=== PATIENT | female | born 1945 | race Caucasian/White ===

== ENCOUNTER 2020-05-03 07:55 | Outpatient (CLI) | payer OTHER, SELFPAY ==
--- NOTE | 2020-05-03 08:42 | ECG_ITS ---
Measurements Intervals [place] Rate: 50 P: 62 MS: 140 QRS: 28 QRSD: 90 T: 67 QT: 453 QTc: 415 Interpretive Statements SINUS BRADYCARDIA BORDERLINE ST ABNORMALITY- LATERAL LEADS BORDERLINE ECG Electronically Signed On 05-03-2020 8:49:28 CDT by Shaka Lundberg D.O.
[2020-05-03 09:40] LABS: Alanine Aminotransferase 36 U/L (4-35); Albumin Level 4.4 g/dL (3.5-5.1); Alkaline Phosphatase 67 U/L (38-126); Aspartate Amino Transferase 38 U/L (14-36); Bilirubin,Total 1.1 mg/dL (0.2-1.3); Blood Urea Nitrogen 16 mg/dL (7-17); Calcium 9.2 mg/dL (8.4-10.2); Carbon Dioxide 28 mmol/L (22-30); Chloride 100 mmol/L (98-107); Estimated Glomerular Filt Rate 54; Glucose 97 mg/dL (65-105); Potassium 4.5 mmol/L (3.4-5.0); Sodium 133 mmol/L (137-145)
[2020-05-03 10:07] LABS: MALB Creatinine Ratio < 17.6 mg/g (0-30); Microalbumin Urine Random < 6.0 mg/L (0-16.7)
== END 2020-05-03 07:56 | disposition home or self-care (01) ==
PROVIDERS: PCP Internal Medicine; Visit Provider Internal Medicine
DX: R00.1 Bradycardia, unspecified (principal); I10 Essential (primary) hypertension
CPT/HCPCS: 36415; 80053; 82043; 83036; 93005

== ENCOUNTER 2020-08-06 10:07 | Outpatient (CLI) | payer OTHER, SELFPAY ==
[2020-08-06 10:30] LABS: Basophils Percent Auto 0.7 % (0.2-1.2); Eosinophils Absolute Auto 0.1 K/mm3 (0-0.3); Eosinophils Percent Auto 1.6 % (0-4.4); Hematocrit 41.5 % (37.0-47.0); Hemoglobin 13.9 g/dL (12.0-15.0); Immature Granulocyte Absolute 0.01 K/mm3 (0.00-0.031); Immature Granulocyte Percent A 0.2 % (0-0.5); Lymphocytes Absolute Auto 0.97 K/mm3 (0.9-3.2); Lymphocytes Percent Auto 22.6 % (18.3-44.2); Mean Corpuscular HGB Conc 33.5 g/dl (32-36); Mean Corpuscular Hemoglobin 31.9 pg (26-34); Mean Corpuscular Volume 95.2 fl (80-100); Mean Platelet Volume 9.5 fl (7.4-10.4); Monocytes Absolute Auto 0.5 K/mm3 (0.1-0.6); Monocytes Percent Auto 11.2 % (2.6-8.5); Neutrophils Absolute Auto 2.7 K/mm3 (1.3-6.7); Neutrophils Percent Auto 63.7 % (45.5-73.1); Platelet Count Result 195 k/mm3 (150-375); Red Blood Count 4.36 M/mm3 (4.2-5.4); Red Cell Distribution Width 12.7 % (11.5-14.5); White Blood Count 4.3 K/mm3 (4.5-10.0)
[2020-08-06 10:39] LABS: Hemoglobin A1C 5.6 % (<5.7)
[2020-08-06 10:42] LABS: Alanine Aminotransferase 41 U/L (4-35); Albumin Level 4.6 g/dL (3.5-5.1); Alkaline Phosphatase 64 U/L (38-126); Anion Gap 10 mmol/L (8-16); Aspartate Amino Transferase 40 U/L (14-36); Bilirubin,Total 0.8 mg/dL (0.2-1.3); Blood Urea Nitrogen 18 mg/dL (7-17); Calcium 9.4 mg/dL (8.4-10.2); Carbon Dioxide 28 mmol/L (22-30); Chloride 101 mmol/L (98-107); Cholesterol 154 mg/dL (0-200); Estimated Glomerular Filt Rate > 60; Glucose 93 mg/dL (65-105); HDL Direct 59 mg/dL; Potassium 4.5 mmol/L (3.4-5.0); Sodium 139 mmol/L (137-145); Triglycerides 67 mg/dL (<150)
[2020-08-06 10:52] LABS: LDL Cholesterol Direct 70 mg/dL
[2020-08-06 11:10] LABS: Creatinine Urine 12.8 mg/dL
[2020-08-06 11:26] LABS: Vitamin D 25 Hydroxy 40.6 ng/mL
[2020-08-06 11:28] LABS: MALB Creatinine Ratio < 46.9 mg/g (0-30); Microalbumin Urine Random < 6.0 mg/L (0-16.7)
== END 2020-08-06 10:08 | disposition home or self-care (01) ==
LOC: ANHLAB 10:07
PROVIDERS: PCP Internal Medicine; Visit Provider Internal Medicine
DX: E03.9 Hypothyroidism, unspecified (principal); I10 Essential (primary) hypertension; R73.01 Impaired fasting glucose; E78.5 Hyperlipidemia, unspecified; E55.9 Vitamin D deficiency, unspecified
CPT/HCPCS: 36415; 80053; 80061; 82043; 82306; 83036; 84443; 85025

== ENCOUNTER 2020-12-06 09:27 | Outpatient (CLI) | payer OTHER, SELFPAY ==
--- NOTE | ~2020-12-06 | DEXA_ITS ---
Bone Density Report Name: Bree Perez Age: 75 Sex: Female Ethnicity: White Date of : 1945 Indication: osteopenia; monitoring treatment; height loss; Referring Provider: CORINE CHILDRESS Study: Bone densitometry was performed. Exam Date: December 06, 2020 Accession number: [id number] Bone Density: Region BMD T-score Z-score Classification AP Spine (L1-L4) 0.909 -1.3 1.1 Osteopenia Femoral Neck (Left) 0.633 -1.9 0.1 Osteopenia Total Hip (Left) 0.800 -1.2 0.6 Osteopenia Total Hip Bilateral Avg 0.744 -1.6 0.2 Osteopenia Femoral Neck (Right) 0.523 -2.9 -0.9 Osteoporosis Total Hip (Right) 0.686 -2.1 -0.3 Osteopenia World Health Organization criteria for BMD impression classify patients as: Normal (T-score at or above -1.0), Osteopenia (T-score between -1.0 and -2.5), or Osteoporosis (T-score at or below -2.5). 10-year Fracture Risk: FRAX not reported because: Some T-score for Spine Total or Hip Total or Femoral Neck at or below -2.5 Treated for osteoporosis Previous Exams: Region Exam Age BMD T-score BMD Change BMD Change Date g/cm2 vs Baseline vs Previous AP Spine(L1-L4) 12/06/2020 75 0.909 -1.3 0.112(14.1%)# 0.073(8.8%)* 10/17/2018 72 0.836 -1.9 0.039(4.9%)# 0.004(0.5%) 10/13/2016 70 0.831 -2.0 0.035(4.3%)# 0.011(1.3%) 06/27/2014 68 0.821 -2.1 0.024(3.0%)# 0.012(1.5%)# 06/10/2012 66 0.809 -2.2 0.012(1.5%)# -0.039(-4.5%)# 06/05/2010 64 0.847 -1.8 0.050(6.3%)* 0.050(6.3%)* 09/02/2006 60 0.797 -2.3 Total Hip(Left) 12/06/2020 75 0.800 -1.2 -0.004(-0.5%)# -0.026(-3.1%) 10/17/2018 72 0.826 -1.0 0.022(2.7%)# 0.072(9.5%)* 10/13/2016 70 0.754 -1.5 -0.050(-6.2%)# -0.027(-3.4%) 06/27/2014 68 0.781 -1.3 -0.023(-2.9%)# 0.018(2.4%)# 06/10/2012 66 0.763 -1.5 -0.041(-5.1%)# -0.040(-5.0%)# 06/05/2010 64 0.803 -1.1 -0.001(-0.1%) -0.001(-0.1%) 09/02/2006 60 0.804 -1.1 Total Hip(Right) 12/06/2020 75 0.686 -2.1 -0.085(-11.1%) -0.082(-10.6%) 10/17/2018 72 0.768 -1.4 -0.004(-0.5%)# 0.045(6.3%)* 10/13/2016 70 0.723 -1.8 -0.049(-6.4%)# -0.020(-2.7%) 06/27/2014 68 0.742 -1.6 -0.029(-3.8%)# -0.004(-0.5%)# 06/10/2012 66 0.746 -1.6 -0.026(-3.3%)# -0.033(-4.3%)# 06/05/2010 64 0.779 -1.3 0.008(1.0%) 0.008(1.0%) 09/02/2006 60 0.772 -1.4 *Denotes significance at 95% confidence level, LSC for AP Spine = 0.022 g/cm2, LSC for Total Hip = 0.027 g/cm2 Clinical Information Provided by Patient:
--- NOTE | ~2020-12-06 | MM_ITS ---
EXAMINATION: MM screening [facility] BI w nahun HISTORY: Screening TECHNIQUE: Craniocaudal and mediolateral oblique 3-D tomosynthesis images were obtained and synthetic 2-D images were generated. CAD analysis was submitted and interpreted. COMPARISON: Comparison to multiple prior studies sequentially, with oldest reviewed study dated 11/2014. BREAST PARENCHYMAL COMPOSITION: The breasts are heterogeneously dense, which may obscure small masses . FINDINGS: There is no evidence of suspicious mass, calcification, or architectural distortion to sugg est malignancy in either breast. There has been no suspicious interval change. IMPRESSION: 1. No mammographic evidence of malignancy. 2. Recommend routine screening mammography in one year. BI-RADS Category 1: Negative Reviewed, dictated and finalized at location A. CONSERVATION TECHNICIAN
== END 2020-12-06 09:28 | disposition home or self-care (01) ==
LOC: ANHIMG 09:29
PROVIDERS: Family Provider Hospitalist; PCP Internal Medicine; Visit Provider Internal Medicine
DX: Z12.31 Encounter for screening mammogram for malignant neoplasm of breast (principal); Z78.0 Asymptomatic menopausal state; M85.89 Other specified disorders of bone density and structure, multiple sites; M81.0 Age-related osteoporosis without current pathological fracture
CPT/HCPCS: 77063; 77067; 77080

== ENCOUNTER 2021-02-04 09:37 | Outpatient (CLI) | payer OTHER, SELFPAY ==
[2021-02-04 10:25] LABS: Alanine Aminotransferase 32 U/L (4-35); Albumin Level 4.7 g/dL (3.5-5.1); Alkaline Phosphatase 65 U/L (38-126); Anion Gap 8 mmol/L (8-16); Aspartate Amino Transferase 38 U/L (14-36); Bilirubin,Total 0.8 mg/dL (0.2-1.3); Blood Urea Nitrogen 25 mg/dL (7-17); Calcium 9.6 mg/dL (8.4-10.2); Carbon Dioxide 28 mmol/L (22-30); Chloride 102 mmol/L (98-107); Estimated Glomerular Filt Rate 54; Glucose 96 mg/dL (65-105); Potassium 4.1 mmol/L (3.4-5.0); Sodium 138 mmol/L (137-145)
[2021-02-04 11:15] LABS: Vitamin D 25 Hydroxy 48.1 ng/mL
== END 2021-02-04 09:38 | disposition home or self-care (01) ==
LOC: ANHLAB 09:38
PROVIDERS: PCP Internal Medicine; Visit Provider Internal Medicine
DX: I10 Essential (primary) hypertension (principal); E55.9 Vitamin D deficiency, unspecified
CPT/HCPCS: 36415; 80053; 82306

== ENCOUNTER 2021-10-08 08:19 | Outpatient (CLI) | payer OTHER, SELFPAY ==
[2021-10-08 09:02] LABS: Alanine Aminotransferase 26 U/L (4-35); Albumin Level 4.5 g/dL (3.5-5.1); Alkaline Phosphatase 69 U/L (38-126); Anion Gap 8 mmol/L (8-16); Aspartate Amino Transferase 34 U/L (14-36); Bilirubin,Total 0.8 mg/dL (0.2-1.3); Blood Urea Nitrogen 21 mg/dL (7-17); Calcium 9.2 mg/dL (8.4-10.2); Carbon Dioxide 26 mmol/L (22-30); Chloride 101 mmol/L (98-107); Estimated Glomerular Filt Rate > 60; Glucose 100 mg/dL (65-110); Potassium 3.8 mmol/L (3.4-5.0); Sodium 135 mmol/L (137-145)
[2021-10-08 09:27] LABS: Vitamin D 25 Hydroxy 47.6 ng/mL
== END 2021-10-08 08:20 | disposition home or self-care (01) ==
LOC: ANHLAB 08:23
PROVIDERS: PCP Internal Medicine; Visit Provider Internal Medicine
DX: M81.0 Age-related osteoporosis without current pathological fracture (principal); E55.9 Vitamin D deficiency, unspecified
CPT/HCPCS: 36415; 80053; 82306

== ENCOUNTER 2021-12-04 10:26 | Outpatient (CLI) | payer OTHER, SELFPAY ==
--- NOTE | ~2021-12-04 | MM_ITS ---
EXAMINATION: MM screening [facility] BI w nahun HISTORY: Screening mammogram TECHNIQUE: Craniocaudal and mediolateral oblique 3-D tomosynthesis images were obtained and synthetic 2-D images were generated. CAD analysis was submitted and interpreted. COMPARISON: 12/06/2020, 11/17/2019, 10/17/2018 BREAST PARENCHYMAL COMPOSITION: The breasts are heterogeneously dense, which may obscure small masses . FINDINGS: There is no evidence of suspicious mass, calcification, or architectural distortion to sugg est malignancy in either breast. There has been no suspicious interval change. IMPRESSION: 1. No mammographic evidence of malignancy. 2. Recommend routine screening mammography in one year. BI-RADS Category 1: Negative Reviewed, dictated and finalized at location A. OMIC PATHOLOGY MANAGER
== END 2021-12-04 10:27 | disposition home or self-care (01) ==
LOC: ANHIMG 10:28
PROVIDERS: PCP Internal Medicine; Visit Provider Internal Medicine
DX: Z12.31 Encounter for screening mammogram for malignant neoplasm of breast (principal)
CPT/HCPCS: 77063; 77067

== ENCOUNTER 2022-02-19 10:58 | Outpatient (CLI) | payer OTHER, SELFPAY ==
[2022-02-19 11:26] LABS: Basophils Percent Auto 0.6 % (0.2-1.2); Eosinophils Absolute Auto 0.1 K/mm3 (0-0.3); Eosinophils Percent Auto 1.4 % (0-4.4); Hematocrit 42.9 % (37.0-47.0); Hemoglobin 13.9 g/dL (12.0-15.0); Immature Granulocyte Absolute 0.02 K/mm3 (0.00-0.031); Immature Granulocyte Percent A 0.4 % (0-0.5); Lymphocytes Absolute Auto 0.82 K/mm3 (0.9-3.2); Lymphocytes Percent Auto 16.9 % (18.3-44.2); Mean Corpuscular HGB Conc 32.4 g/dl (32-36); Mean Corpuscular Hemoglobin 31.4 pg (26-34); Mean Corpuscular Volume 97.1 fl (80-100); Mean Platelet Volume 9.4 fl (7.4-10.4); Monocytes Absolute Auto 0.5 K/mm3 (0.1-0.6); Monocytes Percent Auto 10.3 % (2.6-8.5); Neutrophils Absolute Auto 3.4 K/mm3 (1.3-6.7); Neutrophils Percent Auto 70.4 % (45.5-73.1); Platelet Count Result 183 k/mm3 (150-375); Red Blood Count 4.42 M/mm3 (4.2-5.4); Red Cell Distribution Width 12.2 % (11.5-14.5); White Blood Count 4.9 K/mm3 (4.5-10.0)
[2022-02-19 11:35] LABS: Alanine Aminotransferase 27 U/L (4-35); Albumin Level 4.4 g/dL (3.5-5.1); Alkaline Phosphatase 62 U/L (38-126); Anion Gap 9 mmol/L (8-16); Aspartate Amino Transferase 33 U/L (14-36); Bilirubin,Total 0.9 mg/dL (0.2-1.3); Blood Urea Nitrogen 24 mg/dL (7-17); Carbon Dioxide 26 mmol/L (22-30); Chloride 102 mmol/L (98-107); Cholesterol 188 mg/dL (0-200); Estimated Glomerular Filt Rate 54; Glucose 92 mg/dL (65-110); HDL Direct 59 mg/dL; Potassium 4.3 mmol/L (3.4-5.0); Sodium 137 mmol/L (137-145); Triglycerides 67 mg/dL (<150)
[2022-02-19 11:38] LABS: Hemoglobin A1C 5.5 % (<5.7)
[2022-02-19 11:46] LABS: LDL Cholesterol Direct 80 mg/dL
[2022-02-19 11:48] LABS: Creatinine Urine 20.7 mg/dL
[2022-02-19 11:56] LABS: MALB Creatinine Ratio < 29.0 mg/g (0-30); Microalbumin Urine Random < 6.0 mg/L (0-16.7)
== END 2022-02-19 10:59 | disposition home or self-care (01) ==
LOC: ANHLAB 11:01
PROVIDERS: PCP Internal Medicine; Visit Provider Internal Medicine
DX: M81.0 Age-related osteoporosis without current pathological fracture (principal); E03.9 Hypothyroidism, unspecified; R73.01 Impaired fasting glucose; E78.00 Pure hypercholesterolemia, unspecified; E78.2 Mixed hyperlipidemia
CPT/HCPCS: 36415; 80053; 80061; 82043; 83036; 84443; 85025

== ENCOUNTER 2022-07-31 07:40 | Outpatient (CLI) | payer OTHER, SELFPAY ==
--- NOTE | ~2022-07-31 | DEXA_ITS ---
Bone Density Report Name: HARRIETT GREENE Age: 76 Sex: Female Ethnicity: White Date of : 1945 Indication: osteopenia; monitoring treatment; height loss; postmenopausal Referring Provider: MONROE, CORINE Study: Bone densitometry was performed. Exam Date: July 31, 2022 Accession number: [id number] Bone Density: Region BMD T-score Z-score Classification AP Spine(L1-L4) 0.926 -1.1 1.4 Osteopenia Femoral Neck (Left) 0.623 -2.0 0.1 Osteopenia Total Hip (Left) 0.813 -1.1 0.8 Osteopenia Femoral Neck (Right) 0.549 -2.7 -0.5 Osteoporosis Total Hip (Right) 0.731 -1.7 0.2 Osteopenia Total Hip Mean 0.772 -1.4 0.5 Osteopenia World Health Organization criteria for BMD impression classify patients as: Normal (T-score at or above -1.0), Osteopenia (T-score between -1.0 and -2.5), or Osteoporosis (T-score at or below -2.5). 10-year Fracture Risk: FRAX not reported because: Some T-score for Spine Total or Hip Total or Femoral Neck at or below -2.5 Treated for osteoporosis Previous Exams: Region Exam Age BMD T-score BMD Change BMD Change Date g/cm2 vs Baseline vs Previous AP Spine (L1-L4) 07/31/2022 76 0.926 -1.1 0.105 (12.8%)* 0.017 (1.9%) 12/06/2020 75 0.909 -1.3 0.088 (10.7%)* 0.073 (8.8%)* 10/17/2018 72 0.836 -1.9 0.015 (1.8%) 0.004 (0.5%) 10/13/2016 70 0.831 -2.0 0.011 (1.3%) 0.011 (1.3%) 06/27/2014 68 0.821 -2.1 Total Hip(Left) 07/31/2022 76 0.813 -1.1 0.033 (4.2%)* 0.013 (1.7%) 12/06/2020 75 0.800 -1.2 0.019 (2.5%) -0.026 (-3.1%) 10/17/2018 72 0.826 -1.0 0.045 (5.8%)* 0.072 (9.5%)* 10/13/2016 70 0.754 -1.5 -0.027 (-3.4%) -0.027 (-3.4%) 06/27/2014 68 0.781 -1.3 Total Hip(Right) 07/31/2022 76 0.731 -1.7 -0.011 (-1.5%) 0.045 (6.5%)* 12/06/2020 75 0.686 -2.1 -0.056 (-7.5%) -0.082 (-10.6% 10/17/2018 72 0.768 -1.4 0.026 (3.4%) 0.045 (6.3%)* 10/13/2016 70 0.723 -1.8 -0.020 (-2.7%) -0.020 (-2.7%) 06/27/2014 68 0.742 -1.6 *Denotes significance at 95% confidence level, LSC for AP Spine = 0.022 g/cm2, LSC for Total Hip = 0.027 g/cm2 Clinical Information Provided by Patient: Is being treated for osteoporosis Has used the following medications: Prolia (i.e. denosumab), Vitamin D, Calcium Patient maximum height was 65 Menopause Age: 50 Onset of menses at age 12 Number of children 4 Impression: The patient has osteopor
== END 2022-07-31 07:41 | disposition home or self-care (01) ==
LOC: ANHIMG 07:43
PROVIDERS: PCP Internal Medicine; Visit Provider Internal Medicine
DX: M81.0 Age-related osteoporosis without current pathological fracture (principal); M85.89 Other specified disorders of bone density and structure, multiple sites
CPT/HCPCS: 77080

== ENCOUNTER 2022-09-15 09:30 | Outpatient (CLI) | payer OTHER, SELFPAY ==
[2022-09-15 10:07] LABS: Alanine Aminotransferase 27 U/L (6-35); Albumin Level 4.7 g/dL (3.5-5.1); Alkaline Phosphatase 66 U/L (38-126); Anion Gap 10 mmol/L (8-16); Aspartate Amino Transferase 32 U/L (14-36); Blood Urea Nitrogen 23 mg/dL (7-17); Calcium 9.3 mg/dL (8.4-10.2); Carbon Dioxide 24 mmol/L (22-30); Chloride 102 mmol/L (98-107); Cholesterol 186 mg/dL (0-200); Estimated Glomerular Filt Rate 54; Glucose 92 mg/dL (65-110); HDL Direct 70 mg/dL; Potassium 4.1 mmol/L (3.4-5.0); Sodium 136 mmol/L (137-145); Triglycerides 80 mg/dL (<150)
[2022-09-15 10:18] LABS: LDL Cholesterol Direct 80 mg/dL
[2022-09-15 11:07] LABS: Vitamin D 25 Hydroxy 38.7 ng/mL
== END 2022-09-15 09:31 | disposition home or self-care (01) ==
LOC: ANHLAB 09:31
PROVIDERS: PCP Internal Medicine; Visit Provider Internal Medicine
DX: R73.01 Impaired fasting glucose (principal); I10 Essential (primary) hypertension; E03.9 Hypothyroidism, unspecified; E78.5 Hyperlipidemia, unspecified; E55.9 Vitamin D deficiency, unspecified
CPT/HCPCS: 36415; 80053; 80061; 82306; 83036; 84443

== ENCOUNTER 2022-11-24 10:15 | Outpatient (CLI) | payer OTHER, SELFPAY ==
--- NOTE | ~2022-11-24 | US_ITS ---
Thyroid ultrasound. Clinical History: Nontoxic thyroid nodule Findings: Real-time sonography of the thyroid gland was performed. The right lobe measures 2.9 x 1.2 x 1.0 cm. The left lobe measures 3.0 x 1.0 x 0.7 cm. The isthmus is 2 mm in AP diameter. Parenchyma is somewhat heterogeneous without discrete nodule. Impression: Small/atrophic thyroid gland. Heterogeneous parenchyma without discrete nodule. Reviewed, dictated and finalized at [facility]. PROGRAMMER ANALYST Impression: Small/atrophic thyroid gland. Heterogeneous parenchyma without discrete nodule.
== END 2022-11-24 10:16 | disposition home or self-care (01) ==
PROVIDERS: PCP Family Medicine; Visit Provider Physician Assistant Medical
DX: E04.1 Nontoxic single thyroid nodule (principal); E03.4 Atrophy of thyroid (acquired)
CPT/HCPCS: 76536

== ENCOUNTER 2023-02-17 07:56 | Outpatient (CLI) | payer OTHER, SELFPAY ==
--- NOTE | ~2023-02-17 | MM_ITS ---
EXAMINATION: MM screening dane BI w nahun HISTORY: Screening mammogram TECHNIQUE: Craniocaudal and mediolateral oblique 3-D tomosynthesis images were obtained and synthetic 2-D images were generated. CAD analysis was submitted and interpreted. COMPARISON: 12/04/2021, 12/06/2020, 11/17/2019 bilateral screening mammogram examinations BREAST PARENCHYMAL COMPOSITION: The breasts are heterogeneously dense, which may obscure small masses . FINDINGS: Scattered bilateral benign calcifications. There is no evidence of suspicious mass, calcifi cation, or architectural distortion to suggest malignancy in either breast. There has been no suspici ous interval change. IMPRESSION: 1. No mammographic evidence of malignancy. 2. Recommend routine screening mammography in one year. BI-RADS Category 2: Benign finding(s).............. Reviewed, dictated and finalized at location A.
== END 2023-02-17 07:57 | disposition home or self-care (01) ==
LOC: ANHIMG 07:58
PROVIDERS: PCP Family Medicine; Visit Provider Physician Assistant Medical
DX: Z12.31 Encounter for screening mammogram for malignant neoplasm of breast (principal)
CPT/HCPCS: 77063; 77067

== ENCOUNTER 2023-03-11 08:03 | Outpatient (CLI) | payer OTHER, SELFPAY ==
[2023-03-11 08:47] LABS: Alanine Aminotransferase 31 U/L (6-35); Albumin Level 4.5 g/dL (3.5-5.1); Alkaline Phosphatase 65 U/L (38-126); Anion Gap 7 mmol/L (8-16); Aspartate Amino Transferase 34 U/L (14-36); Blood Urea Nitrogen 23 mg/dL (7-17); Calcium 9.2 mg/dL (8.4-10.2); Carbon Dioxide 28 mmol/L (22-30); Chloride 100 mmol/L (98-107); Cholesterol 159 mg/dL (0-200); Estimated Glomerular Filt Rate > 60; Glucose 91 mg/dL (65-110); HDL Direct 55 mg/dL; Potassium 4.2 mmol/L (3.4-5.0); Sodium 135 mmol/L (137-145); Triglycerides 66 mg/dL (<150)
[2023-03-11 08:58] LABS: LDL Cholesterol Direct 82 mg/dL
[2023-03-11 09:11] LABS: Hemoglobin A1C 5.8 % (<5.7)
== END 2023-03-11 08:04 | disposition home or self-care (01) ==
PROVIDERS: PCP Family Medicine; Visit Provider Physician Assistant Medical
DX: Z00.00 Encounter for general adult medical examination without abnormal findings (principal); R73.01 Impaired fasting glucose; I10 Essential (primary) hypertension; E03.9 Hypothyroidism, unspecified
CPT/HCPCS: 36415; 80053; 80061; 83036; 84443

== ENCOUNTER 2023-08-28 22:08 | Emergency (ER) | payer OTHER, SELFPAY ==
--- NOTE | ~2023-08-28 | XR_ITS ---
XR hand LT min 3V 08/28/2023 22:46 INDICATION: Hand pain PROCEDURE: 4 views left hand COMPARISON: No prior studies for comparison. FINDINGS: Fracture, dislocation or subluxation is not identified. The soft tissues appear within norm al limits. No foreign bodies are identified. IMPRESSION: 1: NO ACUTE BONE OR JOINT ABNORMALITY IDENTIFIED. Reviewed, dictated and finalized at location A.
[2023-08-28 22:10] VITALS: BP 180/92; PULSE 78; RESP 18; TEMP 36.5; O2SAT 100
--- NOTE | 2023-08-28 23:40 | ED.EXTPRO ---
HPI - Extremity Problem General Chief complaint: Extremity Problem,Nontraumatic Stated complaint: Pain to left hand Time Seen by Provider: 08/28/23 22:37 Source: patient Mode of arrival: ambulatory Limitations: no limitations History of Present Illness HPI Narrative: Patient is a 77 y/o female who presents to the ED with c/o left hand/wrist pain. Patient reports last she woke up with pain in her right shoulder. She states she was not able to use her right upper extremity for a couple of days and was compensating with her left hand/arm. She complains of pain today to her left arm/wrist. Mild swelling noted to the left volar wrist. She denies any direct injury. Reports intermittent paresthesias in second and third digits. Denies numbness. Patient took Tylenol today without relief. Related Data Home Medications Medication Instructions Recorded Confirmed ascorbic acid (vitamin C) 500 mg 250 mg PO DAILY 11/17/22 06/01/23 tablet calcium carbonate 600 mg-vitamin cap PO 11/17/22 06/01/23 D3 12.5 mcg (500 unit) capsule (Calcium 600 with Vitamin D3) Allergies Allergy/AdvReac Type Severity Reaction Status Date / Time No Known Allergies Allergy Unknown Unknown Verified 08/28/23 22:14 Review of Systems Review of Systems: CONSTITUTIONAL: Denies fever, chills, or sweats. MUSCULOSKELETAL: See HPI. NEUROLOGIC: See HPI. All systems reviewed & are unremarkable except as noted in HPI and below PMFSH Past Medical History Medical History COVID-19 vaccine series completed Leukocytopenia, unspecified Microscopic hematuria Family History Family History Sibling Hypertension Family history of arthritis Father Patient's father is , Onset Age: 37 Mother Family history of cardiovascular disease, Onset Age: 92 Cerebrovascular accident Family history of heart disease in male family member before age 55 Social History Social History Smoking status: Never smoker Second hand tobacco smoke exposure: No Alcohol intake: never Substance use: never Substance use type: does not use Lack of Transportation: No Lack of Food: Never True Current Housing: I Have Housing Concerned About Future Housing: No Difficulty Paying Gas/Electric Bills: No Difficulty Paying for Meds: No Currently Unemployed: No Education: High School Diploma/GED Difficulty w/ Childcare or Family Care: No Living arrangements: with family Occupation/Education: retired Gender identity (if verbalized by the patient): Female Exam Narrative: GENERAL: Well appearing, thin, non-toxic, in no acute distress. HEAD: Normocephalic, atraumatic. NECK: Supple. No adenopathy, no masses. RESPIRATORY: Airway patent, respirations nonlabored. CARDIOVASCULAR: Regular rate and rhythm without murmurs, rubs, or gallops. Radial pulses 2+ and equal bilaterally. MUSCULOSKELETAL: Moves all extremities. Strength/ROM intact without gross deformities. + carpal compression testing on left wrist reproducing pain. Positive Tinel sign. Area of swelling and focal tenderness over L volar wrist. Sensation intact to all fingers. Equal mineralogy professor strength bilaterally. Good capillary refill. SKIN: Warm, dry, normal color. No rashes. NEURO: A&O X3. Speech clear. Cranial nerves II-XII grossly intact. Steady gait. No ataxic movements. PSYCHIATRIC: Appropriate mood and affect. Normal interaction. Course Vital Signs Vital signs: Vital Signs Temperature 97.7 F 08/28/23 22:10 Pulse Rate 78 08/28/23 22:10 Respiratory Rate 18 08/28/23 22:10 Blood Pressure 180/92 H 08/28/23 22:10 Pulse Oximetry 100 08/28/23 22:10 Oxygen Delivery Room Air 08/28/23 22:10 Temperature 97.7 F 08/28/23 22:10 Pulse Rate 78 08/28/23 22:10 R
[2023-08-29] MEDS: traMADol HCL (*CRX) 25 MG TABLET PO (00:05)
[2023-08-29] MEDS: NAPROXEN 250 MG TABLET PO (00:05)
== END 2023-08-29 00:16 | disposition home or self-care (01) ==
PROVIDERS: Emergency Provider Physician Assistant; PCP Family Medicine
DX: G56.02 Carpal tunnel syndrome, left upper limb (principal)
CPT/HCPCS: 73130; 99283; A9270

== ENCOUNTER 2023-10-07 09:47 | Outpatient (CLI) | payer OTHER, SELFPAY ==
[2023-10-07 10:19] LABS: Alanine Aminotransferase 25 U/L (6-35); Albumin Level 4.4 g/dL (3.5-5.1); Alkaline Phosphatase 76 U/L (38-126); Anion Gap 10 mmol/L (8-16); Aspartate Amino Transferase 32 U/L (14-36); Bilirubin,Total 0.8 mg/dL (0.2-1.3); Blood Urea Nitrogen 19 mg/dL (7-17); Calcium 9.5 mg/dL (8.4-10.2); Carbon Dioxide 26 mmol/L (22-30); Chloride 103 mmol/L (98-107); Cholesterol 180 mg/dL (0-200); Estimated Glomerular Filt Rate > 60; Glucose 92 mg/dL (65-110); HDL Direct 72 mg/dL; Potassium 4.2 mmol/L (3.4-5.0); Sodium 139 mmol/L (137-145); Triglycerides 61 mg/dL (<150)
[2023-10-07 10:23] LABS: Hemoglobin A1C 5.6 % (<5.7)
[2023-10-07 10:30] LABS: LDL Cholesterol Direct 81 mg/dL
== END 2023-10-07 09:48 | disposition home or self-care (01) ==
PROVIDERS: PCP Family Medicine; Visit Provider Physician Assistant Medical
DX: E78.2 Mixed hyperlipidemia (principal); R73.03 Prediabetes
CPT/HCPCS: 36415; 80053; 80061; 83036

== ENCOUNTER 2024-02-12 07:29 | Outpatient (CLI) | payer OTHER, SELFPAY ==
--- NOTE | ~2024-02-12 | MM_ITS ---
EXAMINATION: MM screening dane BI w nahun HISTORY: Screening mammogram TECHNIQUE: Craniocaudal and mediolateral oblique 3-D tomosynthesis images were obtained and synthetic 2-D images were generated. CAD analysis was submitted and interpreted. COMPARISON: February 17, 2023, December 04, 2021 bilateral screening mammogram examinations BREAST PARENCHYMAL COMPOSITION: The breasts are heterogeneously dense, which may obscure small masses . FINDINGS: There is no evidence of suspicious mass, calcification, or architectural distortion to sugg est malignancy in either breast. There has been no suspicious interval change. IMPRESSION: 1. No mammographic evidence of malignancy. 2. Recommend routine screening mammography in one year. BI-RADS Category 1: Negative Reviewed, dictated and finalized at location B.
== END 2024-02-12 07:30 | disposition home or self-care (01) ==
PROVIDERS: PCP Family Medicine; Visit Provider Family Medicine
DX: Z12.31 Encounter for screening mammogram for malignant neoplasm of breast (principal)
CPT/HCPCS: 77063; 77067

== ENCOUNTER 2024-04-05 09:47 | Outpatient (CLI) | payer OTHER, SELFPAY ==
[2024-04-05 10:49] LABS: Alanine Aminotransferase 22 U/L (6-35); Albumin Level 4.6 g/dL (3.5-5.1); Alkaline Phosphatase 67 U/L (38-126); Anion Gap 9 mmol/L (4-12); Aspartate Amino Transferase 29 U/L (14-36); Blood Urea Nitrogen 23 mg/dL (7-17); Calcium 9.3 mg/dL (8.4-10.2); Carbon Dioxide 26 mmol/L (22-30); Chloride 103 mmol/L (98-107); Cholesterol 165 mg/dL (0-200); Estimated Glomerular Filt Rate 48; Glucose 92 mg/dL (65-110); HDL Direct 62 mg/dL; Sodium 138 mmol/L (137-145); Triglycerides 76 mg/dL (<150)
[2024-04-05 11:01] LABS: LDL Cholesterol Direct 79 mg/dL
== END 2024-04-05 09:48 | disposition home or self-care (01) ==
LOC: ANHLAB 09:50
PROVIDERS: PCP Family Medicine; Visit Provider Physician Assistant Medical
DX: E03.9 Hypothyroidism, unspecified (principal); E78.2 Mixed hyperlipidemia
CPT/HCPCS: 36415; 80053; 80061; 84439; 84443

== ENCOUNTER 2024-04-07 08:48 | Outpatient (CLI) | payer OTHER, SELFPAY ==
[2024-04-07 09:44] LABS: Appearance Urine Clear (Clear); Bacteria Urine None Seen /hpf; Bilirubin Urine Negative (Negative); Blood Urine Trace (Negative); Color Urine Yellow (Yellow); Glucose Urine UA Negative (Negative); Ketones Urine Negative (Negative); Leukocyte Esterase Ur Negative LEU/UL (Negative); Need Manual Microscopic Reviewed; Nitrate Urine Negative (Negative); Non Pathogenic Casts 0-2; Protein Urine Negative (Negative); RBC Urine 0-2 /hpf (0-2); Squamous Epithelial Cell Urine None Seen /hpf (Few); Urobilinogen Urine 0.2 mg/dL (<2.0); WBC Urine 0-5 /hpf (0-3)
[2024-04-07 09:51] LABS: Specific Grav Ur 1.004 (1.001-1.035)
[2024-04-07 09:52] LABS: Add Urine Microscopic? YES
== END 2024-04-07 08:49 | disposition home or self-care (01) ==
LOC: ANHLAB 08:50
PROVIDERS: PCP Family Medicine; Visit Provider Physician Assistant Medical
DX: R30.0 Dysuria (principal)
CPT/HCPCS: 81001; 81003

== ENCOUNTER 2024-04-28 19:55 | Emergency (ER) | payer OTHER, SELFPAY ==
[2024-04-28] VITALS (10 sets, daily range): BP systolic 139–195; BP diastolic 67–100; PULSE 73–80; RESP 13–20; TEMP 36.7; O2SAT 97–100
--- NOTE | ~2024-04-28 | CT_ITS ---
CT cervical spine wo con Ordering provider: Keshia Stewart PA-C History: . pain . Radiation reduction technique utilized. DLP is 128. 08 mGy. Comparison: None. Technique: CT of the cervical spine was performed without contrast. Sagittal and coronal reformatted images were also obtained and reviewed. Radiation reduction technique utilized. DLP is 128. 08 mGy. FINDINGS: VERTEBRAE: No subluxation or acute fracture. The occipital condyles are intact. DISC SPACES: Multilevel degenerative disc disease seen with narrowing of the disc C3-C4, C4-C5, C5-C6 and C6-C7. Multilevel uncovertebral joint osteoarthritic changes. Right foraminal narrowing at the l evel of C3-C4. PARASPINOUS SOFT TISSUES: Bilateral carotid calcifications.. IMPRESSION: No acute osseous abnormality cervical spine. Reviewed, dictated and finalized at location A.
--- NOTE | ~2024-04-28 | XR_ITS ---
XR chest 2V Ordering provider: Keshia Stewart PA-C History: 78 years Female with . L shoulder pain, no trauma . Comparison: April 21, 2019 FINDINGS: MEDIASTINUM: The cardiac silhouette is not enlarged. Prominent both ernesto. LUNGS: No infiltrates, effusions or pneumothorax. OTHER: No free air under the diaphragm. Degenerative changes of the spine. IMPRESSION: No acute cardiopulmonary pathology. Reviewed, dictated and finalized at location A.
--- NOTE | ~2024-04-28 | XR_ITS ---
XR shoulder LT min 2V Ordering provider: Keshia Stewart PA-C History: . pain . Comparison: None. FINDINGS: BONES: No acute fracture or dislocation. JOINT SPACES: The acromioclavicular joint is normal. The glenohumeral joint is normal. SOFT TISSUES: Normal. IMPRESSION: No acute osseous abnormality left shoulder. Reviewed, dictated and finalized at location A.
--- NOTE | 2024-04-28 19:59 | ECG_ITS ---
Test Date: 2024-04-28 20:07:08 Measurements Intervals [place] Rate: 83 P: 56 NE: 148 QRS: 5 QRSD: 89 T: 49 QT: 358 QTc: 421 Interpretive Statements SINUS RHYTHM WITH FREQUENT SUPRAVENTRICULAR PREMATURE COMPLEXES POSSIBLE LEFT ATRIAL ENLARGEMENT [-0.1mV P-WAVE IN V1/V2] NONSPECIFIC ST & T-WAVE ABNORMALITY ABNORMAL RHYTHM ECG No previous ECG available for comparison Electronically Signed On 04-29-2024 08:00:14 CDT by Steve Starr M.D.
--- NOTE | 2024-04-28 20:45 | ED.EXTPRO ---
HPI - Extremity Problem General Chief complaint: Extremity Problem,Nontraumatic Stated complaint: LEFT shoulder pain Time Seen by Provider: 04/28/24 20:32 History of Present Illness HPI Narrative: 78-year-old female with a history of hypertension and hyperlipidemia presents to the emergency department for left shoulder pain since 1:00 p.m.. Patient states she worked out this morning at the gym and did a lap pull-down machine. States she had no pain during exercise, however around 1:00 p.m. while she was resting she began developing sharp pain in her left shoulder. She states she took her blood pressure and found to be 190/1 20s which concerned her. She took a shower and states her blood pressure came down to 150, however so his climb back up which prompted her to come to the ED. States she has concern for her heart was make sure she is not having a heart attack. She denies any chest pain or shortness of breath, associated nausea or emesis, associated diaphoresis. She denies exertional chest pain or shortness of breath. She states the pain is in her left shoulder and radiates into her left neck and into the upper part of her arm. She describes it as an electric shock-like pain is concerned it may be a pinched nerve. She denies radiating numbness or tingling. She states the pain is worse when she abducts her arm. She denies history of CAD. Reports family medical history of CVA/TIA. Related Data Home Medications Medication Instructions Recorded Confirmed ascorbic acid (vitamin C) 500 mg 250 mg PO DAILY 11/17/22 04/05/24 tablet calcium carbonate 600 mg-vitamin cap PO 11/17/22 04/05/24 D3 12.5 mcg (500 unit) capsule (Calcium 600 with Vitamin D3) Allergies Allergy/AdvReac Type Severity Reaction Status Date / Time No Known Allergies Allergy Unknown Unknown Verified 04/28/24 20:07 Review of Systems Review of Systems: CONSTITUTIONAL: Denies fever, chills, or sweats. EYES: Denies visual changes, redness, or discharge. ENT: Denies rhinorrhea, congestion, sore throat, or otalgia. CARDIOVASCULAR: Denies chest pain, palpitations, or edema. RESPIRATORY: Denies cough or dyspnea. GASTROINTESTINAL: Denies abdominal pain, nausea, vomiting, or diarrhea. GENITOURINARY: Denies dysuria or hematuria. SKIN: Denies rash or itching. MUSCULOSKELETAL: See HPI NEUROLOGIC: Denies headache, numbness, or weakness. PSYCHIATRIC: Denies anxiety or depression. [facility] Past Medical History Medical History COVID-19 vaccine series completed Leukocytopenia, unspecified Microscopic hematuria Family History Family History Sibling Hypertension Family history of arthritis Father Patient's father is , Onset Age: 37 Mother Family history of cardiovascular disease, Onset Age: 92 Cerebrovascular accident Family history of heart disease in male family member before age 55 Social History Social History Smoking status: Never smoker Second hand tobacco smoke exposure: No Alcohol intake: never Substance use: never Substance use type: does not use Lack of Transportation: No Lack of Food: Never True Current Housing: I Have Housing Concerned About Future Housing: No Difficulty Paying Gas/Electric Bills: No Difficulty Paying for Meds: No Currently Unemployed: No Education: High School Diploma/GED Difficulty w/ Childcare or Family Care: No Living arrangements: with family Occupation/Education: retired Gender identity (if verbalized by the patient): Female Exam Narrative: GENERAL: Well-appearing, well-nourished, and in no acute distress. HEAD: Normocephalic, atraumatic. EYES: PERRLA and EOMI. ENT: Nares clear, no rhinorrhea or epistaxis. Mucous membranes moist. NECK: no midline cervical spinous tenderness
[2024-04-28] MEDS: ACETAMINOPHEN 500 MG TABLET 1000 MG PO (20:52)
[2024-04-28] MEDS: LIDOCAINE 5% PATCH 1 PATCH TRANSDERM (20:53)
[2024-04-28] MEDS: CYCLOBENZAPRINE HCL 10 MG TABLET 5 MG PO (20:53)
[2024-04-28 21:41] LABS: Basophils Percent Auto 0.4 % (0.2-1.2); Eosinophils Percent Auto 0.3 % (0-4.4); Hemoglobin 13.3 g/dL (12.0-15.0); Immature Granulocyte Absolute 0.03 K/mm3 (0.00-0.031); Immature Granulocyte Percent A 0.3 % (0-0.5); Lymphocytes Absolute Auto 0.68 K/mm3 (0.9-3.2); Lymphocytes Percent Auto 7.3 % (18.3-44.2); Mean Corpuscular HGB Conc 32.4 g/dl (32-36); Mean Corpuscular Hemoglobin 30.8 pg (26-34); Mean Corpuscular Volume 94.9 fl (80-100); Mean Platelet Volume 9.3 fl (7.4-10.4); Monocytes Absolute Auto 0.7 K/mm3 (0.1-0.6); Monocytes Percent Auto 7.8 % (2.6-8.5); Neutrophils Absolute Auto 7.8 K/mm3 (1.3-6.7); Neutrophils Percent Auto 83.9 % (45.5-73.1); Platelet Count Result 190 k/mm3 (150-375); Red Blood Count 4.32 M/mm3 (4.2-5.4); Red Cell Distribution Width 12.4 % (11.5-14.5); White Blood Count 9.3 K/mm3 (4.5-10.0)
[2024-04-28 21:51] LABS: Alanine Aminotransferase 21 U/L (6-35); Albumin Level 4.6 g/dL (3.5-5.1); Alkaline Phosphatase 82 U/L (38-126); Anion Gap 10 mmol/L (4-12); Aspartate Amino Transferase 29 U/L (14-36); Blood Urea Nitrogen 13 mg/dL (7-17); Calcium 9.2 mg/dL (8.4-10.2); Carbon Dioxide 24 mmol/L (22-30); Chloride 102 mmol/L (98-107); Estimated CRCL calculation 39 ml/min; Estimated Glomerular Filt Rate > 60; Glucose 129 mg/dL (65-110); Lipase 70 U/L (23-300); Potassium 3.8 mmol/L (3.4-5.0); Prothrombin Time 13.4 Seconds (11.1-14.7); Sodium 136 mmol/L (137-145)
[2024-04-28 21:52] LABS: Partial Thromboplastin Time 35.7 Seconds (22.3-36.8)
[2024-04-28 22:02] LABS: Troponin I < 0.012 ng/mL (0.000-0.034)
--- NOTE | 2024-04-28 22:32 | ECG_ITS ---
Test Date: 2024-04-28 22:47:50 Measurements Intervals [place] Rate: 69 P: 48 VA: 152 QRS: 4 QRSD: 91 T: 70 QT: 357 QTc: 384 Interpretive Statements SINUS RHYTHM WITH FREQUENT SUPRAVENTRICULAR PREMATURE COMPLEXES POSSIBLE LEFT ATRIAL ENLARGEMENT [-0.1mV P WAVE IN V1/V2] NONSPECIFIC ST & T-WAVE ABNORMALITY ABNORMAL RHYTHM ECG Compared to ECG 04/28/2024 20:07:08 No significant changes Electronically Signed On 04-29-2024 08:04:25 CDT by Steve Starr M.D.
== END 2024-04-28 23:17 | disposition home or self-care (01) ==
PROVIDERS: Emergency Provider Physician Assistant; PCP Family Medicine
DX: M25.512 Pain in left shoulder (principal); E78.5 Hyperlipidemia, unspecified; I10 Essential (primary) hypertension; Z79.899 Other long term (current) drug therapy; R94.31 Abnormal electrocardiogram [ECG] [EKG]; I49.1 Atrial premature depolarization; M79.622 Pain in left upper arm
CPT/HCPCS: 36415; 71046; 72125; 73030; 80053; 83690; 84484; 85025; 85610; 85730; 93005; 99284; A9270

== ENCOUNTER 2024-09-26 09:13 | Outpatient (CLI) | payer OTHER, SELFPAY ==
[2024-09-26 09:43] LABS: Basophils Percent Auto 0.6 % (0.2-1.2); Eosinophils Percent Auto 0.8 % (0-4.4); Hematocrit 44.2 % (37.0-47.0); Hemoglobin 14.7 g/dL (12.0-15.0); Immature Granulocyte Absolute 0.01 K/mm3 (0.00-0.031); Immature Granulocyte Percent A 0.2 % (0-0.5); Lymphocytes Absolute Auto 0.92 K/mm3 (0.9-3.2); Mean Corpuscular HGB Conc 33.3 g/dl (32-36); Mean Corpuscular Hemoglobin 31.5 pg (26-34); Mean Corpuscular Volume 94.6 fl (80-100); Mean Platelet Volume 9.1 fl (7.4-10.4); Monocytes Absolute Auto 0.4 K/mm3 (0.1-0.6); Monocytes Percent Auto 8.1 % (2.6-8.5); Neutrophils Absolute Auto 3.5 K/mm3 (1.3-6.7); Neutrophils Percent Auto 71.3 % (45.5-73.1); Platelet Count Result 229 k/mm3 (150-375); Red Blood Count 4.67 M/mm3 (4.2-5.4); Red Cell Distribution Width 12.7 % (11.5-14.5); White Blood Count 4.8 K/mm3 (4.5-10.0)
[2024-09-26 09:56] LABS: Alanine Aminotransferase 21 U/L (6-35); Albumin Level 4.6 g/dL (3.5-5.1); Alkaline Phosphatase 82 U/L (38-126); Anion Gap 8 mmol/L (4-12); Aspartate Amino Transferase 33 U/L (14-36); Bilirubin,Total 0.8 mg/dL (0.2-1.3); Blood Urea Nitrogen 14 mg/dL (7-17); Calcium 9.7 mg/dL (8.4-10.2); Carbon Dioxide 29 mmol/L (22-30); Chloride 102 mmol/L (98-107); Cholesterol 172 mg/dL (0-200); Estimated Glomerular Filt Rate > 60; Glucose 99 mg/dL (65-110); HDL Direct 81 mg/dL; Sodium 139 mmol/L (137-145); Triglycerides 74 mg/dL (<150)
[2024-09-26 10:07] LABS: LDL Cholesterol Direct 63 mg/dL
[2024-09-26 10:46] LABS: Free T4 Free Thyroxine 1.62 ng/mL (0.78-2.19); Vitamin D 25 Hydroxy 43.4 ng/mL
[2024-09-28 17:08] LABS: Albumin 4.4 g/dL (3.8-4.8); Alpha 1 Globulin 0.3 g/dL (0.2-0.3); Alpha 2 Globulin 0.8 g/dL (0.5-0.9); Beta 1 Globulin 0.5 g/dL (0.4-0.6); Gamma Globulin 1.4 g/dL (0.8-1.7)
== END 2024-09-26 09:14 | disposition home or self-care (01) ==
PROVIDERS: PCP Family Medicine; Visit Provider Student in an Organized Health Care Education/Training Program
DX: E03.9 Hypothyroidism, unspecified (principal); E55.9 Vitamin D deficiency, unspecified; I10 Essential (primary) hypertension; R73.03 Prediabetes; M81.0 Age-related osteoporosis without current pathological fracture; R73.01 Impaired fasting glucose
CPT/HCPCS: 36415; 80053; 80061; 82306; 83036; 84155; 84165; 84439; 84443; 85025

== ENCOUNTER 2025-02-13 09:21 | Outpatient (CLI) | payer OTHER, SELFPAY ==
--- NOTE | ~2025-02-13 | MM_ITS ---
EXAMINATION: MM screening dane BI w nahun HISTORY: Screening TECHNIQUE: Craniocaudal and mediolateral oblique 3-D tomosynthesis images were obtained and synthetic 2-D images were generated. CAD analysis was submitted and interpreted. COMPARISON: Comparison to multiple prior studies sequentially, with oldest reviewed study dated 10/08. BREAST PARENCHYMAL COMPOSITION: Dense: The breasts are heterogeneously dense, which may obscure small masses FINDINGS: There is no evidence of suspicious mass, calcification, or architectural distortion to sugg est malignancy in either breast. There has been no suspicious interval change. IMPRESSION: 1. No mammographic evidence of malignancy. 2. Recommend routine screening mammography in one year. BI-RADS Category 1: Negative Reviewed, dictated and finalized at location A.
== END 2025-02-13 09:22 | disposition home or self-care (01) ==
LOC: ANHIMG 09:23
PROVIDERS: PCP Family Medicine; Visit Provider Family Medicine
DX: Z12.31 Encounter for screening mammogram for malignant neoplasm of breast (principal)
CPT/HCPCS: 77063; 77067

== ENCOUNTER 2025-05-08 10:47 | Outpatient (CLI) | payer OTHER, SELFPAY ==
[2025-05-08 11:21] LABS: Hematocrit 41.0 % (37.0-47.0); Hemoglobin 13.3 g/dL (12.0-15.0); Immature Granulocyte Percent A 0.5 % (0-0.5); Lymphocytes Absolute Auto 1.33 K/mm3 (0.9-3.2); Mean Corpuscular HGB Conc 32.4 g/dl (32-36); Mean Corpuscular Hemoglobin 30.1 pg (26-34); Mean Corpuscular Volume 92.8 fl (80-100); Nucleated Red Blood Cells Absolute Auto 0.000 K/mm3 (0.0-0.012); Nucleated Red Blood Cells Perc 0.0 % (0.0-0.2); Platelet Count Result 274 k/mm3 (150-375); Red Blood Count 4.42 M/mm3 (4.2-5.4); White Blood Count 5.9 K/mm3 (4.5-10.0)
[2025-05-08 11:35] LABS: Alanine Aminotransferase 19 U/L (6-35); Albumin Level 4.2 g/dL (3.5-5.1); Alkaline Phosphatase 72 U/L (38-126); Anion Gap 10 mmol/L (4-12); Aspartate Amino Transferase 32 U/L (14-36); Bilirubin,Total 0.6 mg/dL (0.2-1.3); Blood Urea Nitrogen 15 mg/dL (7-17); Calcium 9.6 mg/dL (8.4-10.2); Carbon Dioxide 25 mmol/L (22-30); Chloride 103 mmol/L (98-107); Cholesterol 183 mg/dL (0-200); Estimated Glomerular Filt Rate 53; Glucose 93 mg/dL (65-110); HDL Direct 48 mg/dL; Potassium 4.0 mmol/L (3.4-5.0); Sodium 138 mmol/L (137-145); Total Protein 8.2 g/dL (6.3-8.2); Triglycerides 110 mg/dL (<150)
[2025-05-08 11:53] LABS: Hemoglobin A1C. 5.9 % (<5.7)
[2025-05-08 12:04] LABS: Free T4 Free Thyroxine. 1.93 ng/dL (0.78-2.19)
[2025-05-08 12:05] LABS: Thyroid Stimulating Hormone 0.020 uIU/mL (0.465-4.680)
== END 2025-05-08 10:48 | disposition home or self-care (01) ==
PROVIDERS: PCP Family Medicine; Visit Provider Student in an Organized Health Care Education/Training Program
DX: E03.9 Hypothyroidism, unspecified (principal); I10 Essential (primary) hypertension; R73.03 Prediabetes; E78.00 Pure hypercholesterolemia, unspecified; E55.9 Vitamin D deficiency, unspecified; R53.83 Other fatigue
CPT/HCPCS: 36415; 80053; 80061; 82306; 83036; 84439; 84443; 85025